=== PATIENT | male | born 1965 | race Caucasian/White ===

== ENCOUNTER 2024-09-17 17:18 | Emergency (ER) | payer OTHER ==
[~2024-09-17] VITALS: Ht 172.7 cm; Wt 109.1 kg
[2024-09-17 18:35] VITALS: TEMP 98.5
[2024-09-17] MEDS ORDERED: ESCI20TA87 PO (18:56)
[2024-09-17] MEDS ORDERED: ACET-2247 PO (18:56)
[2024-09-17] MEDS ORDERED: TOPI100T37 PO (18:56)
[2024-09-17] MEDS ORDERED: MELA5TAB40 PO (18:56)
[2024-09-17] MEDS ORDERED: LAMO-24 PO (18:56)
[2024-09-17] MEDS ORDERED: LORA-999 PO (18:56)
[2024-09-17] MEDS ORDERED: GABA-1181 PO ×2 (18:56)
[2024-09-17] MEDS ORDERED: ASPI-1450 PO (18:56)
[2024-09-17] MEDS ORDERED: BACL10TA PO (18:56)
[2024-09-17] MEDS ORDERED: MAGN-169 PO (18:56)
[2024-09-17] MEDS ORDERED: ATOR40TA28 PO (18:56)
[2024-09-17 19:13] LABS: BASOPHILS % (AUTO) 0.5 % (0.0-2.0); EOSINOPHILS % (AUTO) 5.3 % (1.0-6.0); HEMATOCRIT 49.9 % (41-53); HEMOGLOBIN 16.3 g/dL (13.5-17.5); LYMPHOCYTES # (AUTO) 2.7 K/uL (1.0-4.8); LYMPHOCYTES % (AUTO) 29.9 % (22.0-44.0); MEAN CORPUSCULAR HEMOGLOBIN 30.3 pg (26.0-34.0); MEAN CORPUSCULAR HGB CONC 32.6 G/dL (31.0-37.0); MEAN CORPUSCULAR VOLUME 93 fL (80-100); MONOCYTES % (AUTO) 11.3 % (2.0-9.0); NEUTROPHILS # (AUTO) 4.8 K/uL (1.8-7.7); PLATELET COUNT (AUTO) 286 K/uL (150-450); RED BLOOD CELL COUNT(AUTO) 5.37 MIL/uL (4.50-5.90)
[2024-09-17 19:22] LABS: ANION GAP 8 mmol/L (8-16); CARBON DIOXIDE 23 mmol/L (22-29); CHLORIDE 106 mmol/L (98-107); CREATININE 0.91 mg/dL (0.60-1.30); GLOMERULAR FILTR. RATE CALC > 60 mL/min (>60); GLUCOSE,RANDOM 118 mg/dL (70-110); SODIUM SERUM 137 mmol/L (136-145); UREA NITROGEN, BLOOD 13 mg/dL (7-18)
[2024-09-17 19:25] LABS: ALCOHOL, BLOOD (SERUM) < 3 mg/dL (0-10)
[2024-09-18 00:02] VITALS: BP 92/66; PULSE 61; RESP 16; O2SAT 95
== END 2024-09-18 01:18 | disposition home or self-care (01) ==
LOC: EMS 17:18
DX: R45.1 Restlessness and agitation (principal); I10 Essential (primary) hypertension; Z79.82 Long term (current) use of aspirin; Z86.73 Personal history of transient ischemic attack (TIA), and cerebral infarction without residual deficits; Z79.899 Other long term (current) drug therapy
CPT/HCPCS: 80048; 85025; 99283; G0480

== ENCOUNTER 2025-03-30 20:36 | Inpatient (IN) | payer MEDICAID, OTHER ==
[~2025-03-30 20:36] MED LIST: ASPI-1450 PO; ATOR40TA28 PO; BACL10TA PO; DEXT30DR5 OD; ESCI20TA87 PO; GABA-1181 PO; LAMO-24 PO; LORA0.5T20 PO; MELA5TAB40 PO; MULT-1366 PO; TOPI-258 PO
[2025-03-30 21:00] VITALS: BP_SYST 101; BP_DIAS 70; BP_DIAS 71; PULSE 76; RESP 18; TEMP 97.9; TEMP 98; O2SAT 95
[2025-03-30] MEDS ORDERED: BISACODYL 10 MG RECTAL RECTAL SUPPOSITORY PR PRN (21:00)
[2025-03-30] MEDS ORDERED: HYDROCODONE/ACETAMINOPHEN 5-325 MG TABLET PO PRN (21:00)
[2025-03-30] MEDS ORDERED: ONDANSETRON HCL 4 MG/2 ML VIAL IVP PRN (21:00)
[2025-03-30] MEDS ORDERED: MAGNESIUM HYDROXIDE SUSPENSION 30 ML UDCUP PO PRN (21:00)
[2025-03-30] MEDS ORDERED: ACETAMINOPHEN 325 MG TABLET PO PRN (21:00)
[2025-03-30] MEDS ORDERED: MORPHINE SULFATE 2 MG/ML SYRINGE IVP PRN (21:00)
[2025-03-30] MEDS ORDERED: ZOLPIDEM TARTRATE 5 MG TABLET PO PRN (21:00)
[2025-03-30] MEDS: DOCUSATE SODIUM 100 MG CAPSULE PO SCH (21:00)
[2025-03-30 21:53] LABS: BASOPHILS % (AUTO) 0.3 % (0.0-2.0); EOSINOPHILS % (AUTO) 4.4 % (1.0-6.0); HEMATOCRIT 49.5 % (41-53); HEMOGLOBIN 16.6 g/dL (13.5-17.5); LYMPHOCYTES # (AUTO) 1.8 K/uL (1.0-4.8); LYMPHOCYTES % (AUTO) 28.9 % (22.0-44.0); MEAN CORPUSCULAR HEMOGLOBIN 29.7 pg (26.0-34.0); MEAN CORPUSCULAR HGB CONC 33.5 G/dL (31.0-37.0); MEAN CORPUSCULAR VOLUME 89 fL (80-100); MONOCYTES # (AUTO) 0.5 K/uL (0.1-1.0); MONOCYTES % (AUTO) 8.3 % (2.0-9.0); NEUTROPHILS # (AUTO) 3.6 K/uL (1.8-7.7); NEUTROPHILS % (AUTO) 58.1 % (40.0-70.0); PLATELET COUNT (AUTO) 317 K/uL (150-450); RED BLOOD CELL COUNT(AUTO) 5.57 MIL/uL (4.50-5.90); RED CELL DISTRIBUTION WIDTH 14.5 % (11.5-14.5); WHITE BLOOD COUNT (AUTO) 6.3 K/uL (4.5-11.0)
[2025-03-30 22:28] LABS: ANION GAP 9 mmol/L (8-16); CALCIUM, TOTAL 8.9 mg/dL (8.8-10.5); CARBON DIOXIDE 26 mmol/L (22-29); CHLORIDE 105 mmol/L (98-107); GLOMERULAR FILTR. RATE CALC > 60 mL/min (>60); GLUCOSE,RANDOM 164 mg/dL (70-110); POTASSIUM 4.4 mmol/L (3.5-5.1); SODIUM SERUM 140 mmol/L (136-145); UREA NITROGEN, BLOOD 15 mg/dL (7-18)
[2025-03-31] MEDS: HEPARIN SODIUM,PORCINE 5,000 UNITS/ML VIAL SQ SCH
[2025-03-31] MEDS: DEXTROSE 5%-0.45% SODIUM CHL 1,000 ML IV ONE (02:30)
[2025-03-31 04:00] VITALS: BP 92/66; PULSE 65; RESP 18; TEMP 97.9; O2SAT 93
[2025-03-31 08:02] VITALS: BP 99/88; PULSE 60; RESP 18; TEMP 98.8; O2SAT 95
[2025-03-31] MEDS: haloperidoL LACTATE 5 MG/ML VIAL IM PRN (09:33)
[2025-03-31] MEDS: ATORVASTATIN CALCIUM 40 MG TABLET PO SCH (09:47)
[2025-03-31] MEDS: ASPIRIN 81 MG CHEWABLE TABLET PO SCH (09:48)
[2025-03-31] MEDS: PANTOPRAZOLE SODIUM 40 MG DR TABLET PO SCH (09:48)
[2025-03-31 10:45] LABS: BASOPHILS % (AUTO) 0.3 % (0.0-2.0); EOSINOPHILS % (AUTO) 3.2 % (1.0-6.0); HEMATOCRIT 49.6 % (41-53); HEMOGLOBIN 16.2 g/dL (13.5-17.5); LYMPHOCYTES # (AUTO) 2.6 K/uL (1.0-4.8); LYMPHOCYTES % (AUTO) 28.2 % (22.0-44.0); MEAN CORPUSCULAR HEMOGLOBIN 29.4 pg (26.0-34.0); MEAN CORPUSCULAR HGB CONC 32.6 G/dL (31.0-37.0); MEAN CORPUSCULAR VOLUME 90 fL (80-100); MONOCYTES # (AUTO) 0.9 K/uL (0.1-1.0); MONOCYTES % (AUTO) 9.8 % (2.0-9.0); NEUTROPHILS # (AUTO) 5.3 K/uL (1.8-7.7); NEUTROPHILS % (AUTO) 58.5 % (40.0-70.0); PLATELET COUNT (AUTO) 303 K/uL (150-450); RED CELL DISTRIBUTION WIDTH 14.5 % (11.5-14.5); WHITE BLOOD COUNT (AUTO) 9.1 K/uL (4.5-11.0)
[2025-03-31 10:49] LABS: ANION GAP 5 mmol/L (8-16); CALCIUM, TOTAL 9.2 mg/dL (8.8-10.5); CARBON DIOXIDE 30 mmol/L (22-29); CHLORIDE 106 mmol/L (98-107); CREATININE 1.17 mg/dL (0.60-1.30); GLOMERULAR FILTR. RATE CALC > 60 mL/min (>60); GLUCOSE,RANDOM 102 mg/dL (70-110); POTASSIUM 3.9 mmol/L (3.5-5.1); SODIUM SERUM 141 mmol/L (136-145); UREA NITROGEN, BLOOD 15 mg/dL (7-18)
[2025-03-31 12:06] VITALS: BP 129/85; PULSE 59; RESP 20; TEMP 98.2; O2SAT 98
[2025-03-31 16:01] VITALS: BP 117/83; PULSE 55; RESP 20; TEMP 98.2; O2SAT 93
[2025-03-31 20:00] VITALS: BP 113/97; PULSE 50; RESP 14; TEMP 98.1; O2SAT 94
[2025-03-31 20:01] LABS: GLUCOMETER DEV NAME(LOC) 5N.2C; GLUCOSE,POINT OF CARE 132 MG/DL (70-110)
[2025-03-31 21:55] LABS: GLUCOMETER DEV NAME(LOC) 5S.2D; GLUCOSE,POINT OF CARE 99 MG/DL (70-110)
[2025-03-31 23:10] VITALS: BP 105/64; PULSE 68; TEMP 98.8; O2SAT 94
[2025-04-01] VITALS: RESP 17; O2SAT 94
[2025-04-01 04:06] VITALS: BP 114/83; PULSE 61; RESP 16; TEMP 97.7; O2SAT 94
[2025-04-01 06:38] LABS: BASOPHILS % (AUTO) 0.3 % (0.0-2.0); EOSINOPHILS % (AUTO) 3.4 % (1.0-6.0); HEMATOCRIT 46.5 % (41-53); HEMOGLOBIN 15.5 g/dL (13.5-17.5); LYMPHOCYTES # (AUTO) 2.4 K/uL (1.0-4.8); LYMPHOCYTES % (AUTO) 26.7 % (22.0-44.0); MEAN CORPUSCULAR HEMOGLOBIN 29.8 pg (26.0-34.0); MEAN CORPUSCULAR HGB CONC 33.3 G/dL (31.0-37.0); MEAN CORPUSCULAR VOLUME 90 fL (80-100); MONOCYTES # (AUTO) 0.8 K/uL (0.1-1.0); MONOCYTES % (AUTO) 8.6 % (2.0-9.0); NEUTROPHILS # (AUTO) 5.5 K/uL (1.8-7.7); PLATELET COUNT (AUTO) 301 K/uL (150-450); WHITE BLOOD COUNT (AUTO) 9.1 K/uL (4.5-11.0)
[2025-04-01 06:46] LABS: ANION GAP 10 mmol/L (8-16); CARBON DIOXIDE 25 mmol/L (22-29); CHLORIDE 105 mmol/L (98-107); CREATININE 0.97 mg/dL (0.60-1.30); GLOMERULAR FILTR. RATE CALC > 60 mL/min (>60); GLUCOSE,RANDOM 104 mg/dL (70-110); POTASSIUM 3.6 mmol/L (3.5-5.1); SODIUM SERUM 140 mmol/L (136-145); UREA NITROGEN, BLOOD 14 mg/dL (7-18)
[2025-04-01 07:00] LABS: GLUCOMETER DEV NAME(LOC) 5N.1D; GLUCOSE,POINT OF CARE 114 MG/DL (70-110)
[2025-04-01 08:02] VITALS: BP 110/79; PULSE 63; RESP 17; TEMP 97.9; O2SAT 95
[2025-04-01 12:23] VITALS: BP 116/80; PULSE 62; RESP 17; TEMP 97.8; O2SAT 90
[2025-04-01 15:27] VITALS: BP 109/72; PULSE 68; RESP 18; TEMP 97.5; O2SAT 92
[2025-04-01 21:10] VITALS: BP 102/59; PULSE 55; RESP 20; TEMP 97.5; O2SAT 90
[2025-04-02 05:00] VITALS: BP 110/60; PULSE 57; RESP 19; TEMP 98.1; O2SAT 91
[2025-04-02 08:26] VITALS: BP 113/76; PULSE 58; RESP 19; TEMP 98.1; O2SAT 94
[2025-04-02] MEDS: SCOPOLAMINE HYDROBROMIDE 1 MG/72 HOUR PATCH TD SCH (09:32)
[2025-04-02 11:11] LABS: COVID AG,FIA SOURCE NASAL SWAB
[2025-04-02 11:14] VITALS: BP 109/85; PULSE 70; RESP 18; TEMP 98; O2SAT 92
[2025-04-02 11:22] LABS: BASOPHILS % (AUTO) 0.3 % (0.0-2.0); EOSINOPHILS % (AUTO) 4.4 % (1.0-6.0); HEMATOCRIT 49.6 % (41-53); HEMOGLOBIN 16.3 g/dL (13.5-17.5); LYMPHOCYTES # (AUTO) 2.3 K/uL (1.0-4.8); LYMPHOCYTES % (AUTO) 25.6 % (22.0-44.0); MEAN CORPUSCULAR HEMOGLOBIN 29.3 pg (26.0-34.0); MEAN CORPUSCULAR HGB CONC 32.8 G/dL (31.0-37.0); MEAN CORPUSCULAR VOLUME 89 fL (80-100); MONOCYTES # (AUTO) 0.8 K/uL (0.1-1.0); MONOCYTES % (AUTO) 9.2 % (2.0-9.0); NEUTROPHILS # (AUTO) 5.5 K/uL (1.8-7.7); NEUTROPHILS % (AUTO) 60.5 % (40.0-70.0); PLATELET COUNT (AUTO) 289 K/uL (150-450); RED BLOOD CELL COUNT(AUTO) 5.54 MIL/uL (4.50-5.90); RED CELL DISTRIBUTION WIDTH 14.1 % (11.5-14.5); WHITE BLOOD COUNT (AUTO) 9.1 K/uL (4.5-11.0)
[2025-04-02 11:37] LABS: ANION GAP 9 mmol/L (8-16); CALCIUM, TOTAL 9.1 mg/dL (8.8-10.5); CARBON DIOXIDE 25 mmol/L (22-29); CHLORIDE 104 mmol/L (98-107); CREATININE 0.89 mg/dL (0.60-1.30); GLOMERULAR FILTR. RATE CALC > 60 mL/min (>60); GLUCOSE,RANDOM 119 mg/dL (70-110); POTASSIUM 3.8 mmol/L (3.5-5.1); SODIUM SERUM 138 mmol/L (136-145); UREA NITROGEN, BLOOD 11 mg/dL (7-18)
[2025-04-02 11:37] LABS: SARS-COV2 (COVID) ANTIGEN,FIA Negative (Negative)
[2025-04-02 16:00] VITALS: BP 125/99; PULSE 74; RESP 18; TEMP 98.2; O2SAT 94
[2025-04-02 21:00] VITALS: BP 133/95; PULSE 70; RESP 18; TEMP 97.7; O2SAT 95
[2025-04-02] MEDS: LORazepam 0.5 MG TABLET PO SCH (21:23)
[2025-04-02] MEDS: LamoTRIgine 100 MG TABLET PO SCH (21:23)
[2025-04-02] MEDS: TOPIRAMATE 100 MG TABLET PO SCH (21:23)
[2025-04-03] VITALS: BP 116/78; PULSE 60; RESP 17; TEMP 97.7; O2SAT 92
[2025-04-03 05:21] LABS: APPEARANCE,URINE CLEAR (CLEAR); BILIRUBIN,URINE NEGATIVE (NEGATIVE); COLOR,URINE YELLOW (YELLOW); GLUCOSE, URINE (UA) NEGATIVE (NEGATIVE); KETONES,URINE TRACE mg/dL (NEGATIVE); LEUKOCYTE ESTERASE ,URINE NEGATIVE (NEGATIVE); NITRATE,URINE NEGATIVE (NEGATIVE); OCCULT BLOOD,URINE NEGATIVE (NEGATIVE); PROTEIN,URINE NEGATIVE (NEGATIVE); SPECIFIC GRAVITIY, URINE 1.018 (1.003-1.030)
[2025-04-03 05:35] LABS: AMORPHOUS SEDIMENT,UR Few /LPF (None Seen); BACTERIA,URINE None Seen /HPF (None Seen); CALCIUM OXALATE CRYSTALS,UR Many /LPF (None Seen); RBC,URINE None Seen /HPF (0-2); SQUAMOUS EPITHELIAL CELL,UR Rare /LPF (None Seen); WBC,URINE None Seen /HPF (0-5)
[2025-04-03 06:19] VITALS: BP 115/82; PULSE 61; RESP 18; TEMP 97.9; O2SAT 93
[2025-04-03 06:25] LABS: BASOPHILS % (AUTO) 0.2 % (0.0-2.0); EOSINOPHILS % (AUTO) 3.1 % (1.0-6.0); HEMATOCRIT 50.6 % (41-53); HEMOGLOBIN 16.8 g/dL (13.5-17.5); LYMPHOCYTES # (AUTO) 2.4 K/uL (1.0-4.8); LYMPHOCYTES % (AUTO) 24.3 % (22.0-44.0); MEAN CORPUSCULAR HEMOGLOBIN 29.7 pg (26.0-34.0); MEAN CORPUSCULAR HGB CONC 33.1 G/dL (31.0-37.0); MEAN CORPUSCULAR VOLUME 90 fL (80-100); MONOCYTES % (AUTO) 10.7 % (2.0-9.0); NEUTROPHILS % (AUTO) 61.7 % (40.0-70.0); PLATELET COUNT (AUTO) 307 K/uL (150-450); RED BLOOD CELL COUNT(AUTO) 5.65 MIL/uL (4.50-5.90); RED CELL DISTRIBUTION WIDTH 14.1 % (11.5-14.5); WHITE BLOOD COUNT (AUTO) 9.8 K/uL (4.5-11.0)
[2025-04-03 06:28] LABS: ANION GAP 8 mmol/L (8-16); CARBON DIOXIDE 27 mmol/L (22-29); CHLORIDE 103 mmol/L (98-107); CREATININE 0.98 mg/dL (0.60-1.30); GLOMERULAR FILTR. RATE CALC > 60 mL/min (>60); GLUCOSE,RANDOM 98 mg/dL (70-110); POTASSIUM 3.5 mmol/L (3.5-5.1); SODIUM SERUM 138 mmol/L (136-145); UREA NITROGEN, BLOOD 10 mg/dL (7-18)
[2025-04-03 08:19] VITALS: BP 122/85; PULSE 52; RESP 18; TEMP 97.9; O2SAT 93
[2025-04-03] MEDS: ESCITALOPRAM OXALATE 20 MG TABLET PO SCH (09:11)
[2025-04-03 11:37] VITALS: BP 123/92; PULSE 62; RESP 19; TEMP 98.2; O2SAT 94
[2025-04-03 20:00] VITALS: BP 117/55; PULSE 60; RESP 18; TEMP 97.7; O2SAT 95
[2025-04-04 07:43] VITALS: BP 118/85; PULSE 63; RESP 18; TEMP 98.9; O2SAT 95
[2025-04-04 11:39] VITALS: BP 111/98; PULSE 72; RESP 18; TEMP 98.4; O2SAT 94
[2025-04-04 15:53] VITALS: BP 122/82; PULSE 93; RESP 18; TEMP 97.5; O2SAT 95
== END 2025-04-04 19:30 | DRG 42 ==
LOC: 5N 20:51
PROVIDERS: ADMIT Internal Medicine; ATTEND Internal Medicine
PROC: GZHZZZZ Group Psychotherapy (ICD-10-PCS; principal; 2025-03-31)
DX: F03.911 Unspecified dementia, unspecified severity, with agitation (principal); F20.0 Paranoid schizophrenia; F28 Other psychotic disorder not due to a substance or known physiological condition; R09.02 Hypoxemia; I69.351 Hemiplegia and hemiparesis following cerebral infarction affecting right dominant side; E78.5 Hyperlipidemia, unspecified; I10 Essential (primary) hypertension; F33.1 Major depressive disorder, recurrent, moderate; F03.94 Unspecified dementia, unspecified severity, with anxiety; Z79.899 Other long term (current) drug therapy
CPT/HCPCS: 71045; 80048; 81001; 82962; 85025; 87081; 92526; 92610; J1630; J1644; 36415-L1; 36415-TC

== ENCOUNTER 2025-04-08 08:33 | Inpatient (IN) | payer MEDICAID, OTHER ==
[~2025-04-08] VITALS: Ht 172.7 cm; Wt 110.5 kg
[2025-04-08 09:07] LABS: BASOPHILS % (AUTO) 0.2 % (0.0-2.0); EOSINOPHILS % (AUTO) 3.2 % (1.0-6.0); HEMATOCRIT 48.3 % (41-53); HEMOGLOBIN 15.9 g/dL (13.5-17.5); LYMPHOCYTES # (AUTO) 2.5 K/uL (1.0-4.8); LYMPHOCYTES % (AUTO) 23.2 % (22.0-44.0); MEAN CORPUSCULAR HEMOGLOBIN 29.3 pg (26.0-34.0); MEAN CORPUSCULAR HGB CONC 32.8 G/dL (31.0-37.0); MEAN CORPUSCULAR VOLUME 89 fL (80-100); MONOCYTES # (AUTO) 1.1 K/uL (0.1-1.0); MONOCYTES % (AUTO) 9.9 % (2.0-9.0); NEUTROPHILS # (AUTO) 6.9 K/uL (1.8-7.7); NEUTROPHILS % (AUTO) 63.5 % (40.0-70.0); PLATELET COUNT (AUTO) 299 K/uL (150-450); RED BLOOD CELL COUNT(AUTO) 5.42 MIL/uL (4.50-5.90); RED CELL DISTRIBUTION WIDTH 14.2 % (11.5-14.5); WHITE BLOOD COUNT (AUTO) 10.9 K/uL (4.5-11.0)
[2025-04-08 09:14] LABS: ANION GAP 6 mmol/L (8-16); CARBON DIOXIDE 28 mmol/L (22-29); CHLORIDE 106 mmol/L (98-107); CREATININE 1.01 mg/dL (0.60-1.30); GLOMERULAR FILTR. RATE CALC > 60 mL/min (>60); GLUCOSE,RANDOM 92 mg/dL (70-110); POTASSIUM 3.6 mmol/L (3.5-5.1); SODIUM SERUM 140 mmol/L (136-145); UREA NITROGEN, BLOOD 8 mg/dL (7-18)
[2025-04-08 10:09] LABS: COVID AG,FIA SOURCE NASAL SWAB
[2025-04-08 11:05] LABS: SARS-COV2 (COVID) ANTIGEN,FIA Negative (Negative)
[2025-04-08] MEDS: LORazepam 2 MG/ML VIAL IM ONE (11:47)
[2025-04-08] MEDS: DiphenhydrAMINE HCL 50 MG/ML VIAL IM ONE (14:11)
[2025-04-08] MEDS: haloperidoL LACTATE 5 MG/ML VIAL IM ONE (14:12)
[2025-04-08 15:06] LABS: APPEARANCE,URINE CLEAR (CLEAR); BILIRUBIN,URINE NEGATIVE (NEGATIVE); COLOR,URINE YELLOW (YELLOW); GLUCOSE, URINE (UA) NEGATIVE (NEGATIVE); KETONES,URINE NEGATIVE (NEGATIVE); LEUKOCYTE ESTERASE ,URINE NEGATIVE (NEGATIVE); NITRATE,URINE NEGATIVE (NEGATIVE); OCCULT BLOOD,URINE NEGATIVE (NEGATIVE); PROTEIN,URINE NEGATIVE (NEGATIVE); SPECIFIC GRAVITIY, URINE 1.021 (1.003-1.030)
[2025-04-08 15:12] LABS: ALCOHOL, URINE DRUG SCREEN NEGATIVE (NEGATIVE); AMPHET/METH SCREEN,URINE NEGATIVE (NEGATIVE); BARBITURATE SCREEN, URINE NEGATIVE (NEGATIVE); BENZODIAZEPINES SCREEN,URINE NEGATIVE (NEGATIVE); CANNABINOID SCREEN,URINE NEGATIVE (NEGATIVE); COCAINE SCREEN,URINE NEGATIVE (NEGATIVE); METHADONE SCREEN, URINE NEGATIVE (NEGATIVE); OPIATE SCREEN,URINE NEGATIVE (NEGATIVE); PHENCYCLIDINE SCREEN,URINE NEGATIVE (NEGATIVE)
[2025-04-09 11:21] LABS: BASOPHILS % (AUTO) 0.4 % (0.0-2.0); HEMATOCRIT 49.5 % (41-53); HEMOGLOBIN 16.4 g/dL (13.5-17.5); LYMPHOCYTES # (AUTO) 1.8 K/uL (1.0-4.8); LYMPHOCYTES % (AUTO) 21.3 % (22.0-44.0); MEAN CORPUSCULAR HEMOGLOBIN 29.7 pg (26.0-34.0); MEAN CORPUSCULAR HGB CONC 33.1 G/dL (31.0-37.0); MEAN CORPUSCULAR VOLUME 90 fL (80-100); MONOCYTES # (AUTO) 0.8 K/uL (0.1-1.0); MONOCYTES % (AUTO) 9.7 % (2.0-9.0); NEUTROPHILS # (AUTO) 5.5 K/uL (1.8-7.7); NEUTROPHILS % (AUTO) 64.6 % (40.0-70.0); PLATELET COUNT (AUTO) 297 K/uL (150-450); RED BLOOD CELL COUNT(AUTO) 5.52 MIL/uL (4.50-5.90); RED CELL DISTRIBUTION WIDTH 14.4 % (11.5-14.5); WHITE BLOOD COUNT (AUTO) 8.4 K/uL (4.5-11.0)
[2025-04-09 11:37] LABS: HEMOGLOBIN A1C 6.1 % (3.8-5.6)
[2025-04-09 12:25] LABS: ALANINE AMINOTRANSFERASE 22 U/L (12-78); ALBUMIN 3.6 g/dL (3.4-5.0); ALKALINE PHOSPHATASE 105 U/L (46-116); ANION GAP 7 mmol/L (8-16); ASPARTATE AMINOTRANSFERASE 33 U/L (15-37); BILIRUBIN,TOTAL 0.9 mg/dL (0.1-1.0); CALCIUM, TOTAL 8.9 mg/dL (8.8-10.5); CARBON DIOXIDE 26 mmol/L (22-29); CHLORIDE 105 mmol/L (98-107); CHOL/HDL RATIO 2.7 (4.2-7.3); CHOLESTEROL 85 mg/dL (131-200); CREATININE 0.88 mg/dL (0.60-1.30); GLOMERULAR FILTR. RATE CALC > 60 mL/min (>60); GLUCOSE,RANDOM 140 mg/dL (70-110); HDL CHOLESTEROL 32 mg/dL (40-60); LDL CHOL (CALC.) 32 mg/dL (0-130); POTASSIUM 3.7 mmol/L (3.5-5.1); SODIUM SERUM 138 mmol/L (136-145); T4 (THYROXINE) 9.8 mcg/dL (4.7-13.3); TOTAL PROTEIN, SERUM 7.4 g/dL (6.4-8.2); TRIGLYCERIDES 103 mg/dL (15-150); UREA NITROGEN, BLOOD 9 mg/dL (7-18)
[2025-04-09 23:20] VITALS: BP 127/98; PULSE 72; RESP 18; TEMP 97.6; O2SAT 98
[2025-04-10] MEDS: ZOLPIDEM TARTRATE 10 MG TABLET PO PRN (00:15)
[2025-04-10 06:11] VITALS: BP 111/79; PULSE 75; RESP 18; TEMP 97; O2SAT 95
[2025-04-10] MEDS: LORazepam 2 MG TABLET PO PRN (06:25)
[2025-04-10] MEDS: haloperidoL 5 MG TABLET PO PRN (06:25)
[2025-04-10] MEDS ORDERED: BENZOCAINE/MENTHOL [CEPACOL] LOZENGE PO PRN (07:15)
[2025-04-10] MEDS ORDERED: MAG HYDROX/ALUMINUM HYD/SIMETH ES 30 ML SUSPENSION UDCUP PO PRN (07:15)
[2025-04-10] MEDS ORDERED: OMEPRAZOLE 20 MG CAPSULE PO PRN (07:15)
[2025-04-10] MEDS ORDERED: DOCUSATE SODIUM 100 MG CAPSULE PO PRN (07:15)
[2025-04-10] MEDS ORDERED: PETROLATUM,WHITE 28 GM JELLY TP PRN (07:15)
[2025-04-10] MEDS ORDERED: ACETAMINOPHEN 325 MG TABLET PO PRN (07:15)
[2025-04-10] MEDS ORDERED: MAGNESIUM HYDROXIDE SUSPENSION 30 ML UDCUP PO PRN (07:15)
[2025-04-10] MEDS ORDERED: BACITRACIN 28 GM OINTMENT TP PRN (07:15)
[2025-04-10] MEDS ORDERED: ALBUTEROL SULFATE HFA 90 MCG/PUFF 8 GM INHALER IH PRN (07:15)
[2025-04-10] MEDS ORDERED: CloNIDine HCL 0.1 MG TABLET PO PRN (07:15)
[2025-04-10] MEDS ORDERED: IBUPROFEN 600 MG TABLET PO PRN (07:15)
[2025-04-10] MEDS ORDERED: LOPERAMIDE HCL 2 MG CAPSULE PO PRN (07:15)
[2025-04-10] MEDS ORDERED: ONDANSETRON 4 MG TABLET PO PRN (07:15)
[2025-04-10] MEDS ORDERED: [UNRECOGNIZED DRUG - OTHER] PO SCH (09:00)
[2025-04-10 09:13] VITALS: BP 100/78; PULSE 100; RESP 18; TEMP 98.1; O2SAT 97
[2025-04-10] MEDS: GABAPENTIN 300 MG CAPSULE PO SCH (09:47)
[2025-04-10] MEDS: TOPIRAMATE 100 MG TABLET PO SCH (09:47)
[2025-04-10] MEDS: ATORVASTATIN CALCIUM 40 MG TABLET PO SCH (09:47)
[2025-04-10] MEDS: ASPIRIN 81 MG CHEWABLE TABLET PO SCH (09:47)
[2025-04-10] MEDS: BACLOFEN 10 MG TABLET PO SCH (09:47)
[2025-04-10] MEDS: MULTIVITAMINS, THERAPEUTIC TABLET PO SCH (09:47)
[2025-04-10] MEDS: ESCITALOPRAM OXALATE 20 MG TABLET PO SCH (12:31)
[2025-04-10] MEDS: LamoTRIgine 100 MG TABLET PO SCH (16:38)
[2025-04-10] MEDS: LORazepam 0.5 MG TABLET PO SCH (16:38)
[2025-04-10 20:48] VITALS: RESP 18
[2025-04-10] MEDS: MELATONIN 5 MG TABLET PO SCH (21:03)
== END 2025-04-11 09:20 | disposition short-term general hospital (02) | DRG 751 ==
LOC: EMS 08:39 → 3EI 04-09 23:26 → 5N 04-11 10:28
PROVIDERS: ADMIT Psychiatry & Neurology Psychiatry; ATTEND Psychiatry & Neurology Psychiatry
PROC: GZ56ZZZ Individual Psychotherapy, Supportive (ICD-10-PCS; principal; 2025-04-10)
PROC: GZHZZZZ Group Psychotherapy (ICD-10-PCS; 2025-04-10)
DX: F28 Other psychotic disorder not due to a substance or known physiological condition (principal); F03.918 Unspecified dementia, unspecified severity, with other behavioral disturbance; F33.1 Major depressive disorder, recurrent, moderate; E66.09 Other obesity due to excess calories; E78.5 Hyperlipidemia, unspecified; I10 Essential (primary) hypertension; Z20.822 Contact with and (suspected) exposure to COVID-19; J44.9 Chronic obstructive pulmonary disease, unspecified; K21.9 Gastro-esophageal reflux disease without esophagitis; G47.00 Insomnia, unspecified; K59.00 Constipation, unspecified; Z79.82 Long term (current) use of aspirin; Z68.37 Body mass index [BMI] 37.0-37.9, adult; Z79.899 Other long term (current) drug therapy; I69.951 Hemiplegia and hemiparesis following unspecified cerebrovascular disease affecting right dominant side
CPT/HCPCS: 51702; 80048; 80053; 80061; 80307; 81003; 83036; 84436; 84439; 85025; 87081; 96372; 99285; G0480; J1200; J1630; J2060